=== PATIENT | male | born 1990 | race African-American/Black ===

== ENCOUNTER → 2017-01-14 | Outpatient (CLI) | payer OTHER ==
--- NOTE | 2017-01-14 16:42 | RAD ---
Scrotal ultrasound, 01/14/2017: History: Scrotal swelling and pain The right testicle measures 3.7 x 2.6 x 2.0 cm while the left testicle measures 3.9 x 2.8 x 2.3 cm. There is no evidence of a testicular mass. Normal blood flow is present within both testicles. There is a 4 mm cyst in the right epididymis. The left epididymis is unremarkable. There is a small right hydrocele. There are moderate sized bilateral varicoceles. IMPRESSION: 1. Bilateral varicoceles. 2. Small right hydrocele. 3. Small right epididymal cyst.
== END | disposition home or self-care (01) ==
LOC: US 13:07
PROVIDERS: ATTEND Family Medicine
DX: I86.1 Scrotal varices (principal); N43.3 Hydrocele, unspecified; N50.3 Cyst of epididymis
CPT/HCPCS: 76870

== ENCOUNTER 2021-02-13 19:45 | Emergency (ER) | payer BC, OTHER ==
[~2021-02-13] VITALS: Ht 182.9 cm; Wt 70.0 kg
[2021-02-13] MEDS ORDERED: ONDANSETRON ODT 4 MG TAB.RAPDIS. PO ONE (23:45)
[2021-02-13] MEDS ORDERED: predniSONE 10 MG TABLET PO ONE (23:45)
[2021-02-13] MEDS ORDERED: ACETAMINOPHEN 500 MG TABLET PO ONE (23:45)
[2021-02-14] MEDS ORDERED: ONDA4TAB12 PO (00:39)
--- NOTE | 2021-02-14 00:39 | PHYS DOC ---
General Adult EDM: Chief Complaint: MULTIPLE COMPLAINTS HPI: HPI: Patient is a 30 year old male with no significant medical history presenting today complaining of nausea, vomiting, diarrhea, headaches, body aches, symptoms for 2 days. Denies any abdominal pain, denies any hematemesis or melena. Descr ibes the headache as throbbing and intermittent. Denies anything specifically exacerbating or relieving his headache. Patient reports the daughter has similar symptoms. (OMKAR RADER APRN) Review of Systems: Review of Systems: Constitutional: Reports body aches. Denies fever or chills. [] Eyes: Denies change in visual acuity. [] HENT: Denies nasal congestion or sore throat. [] Respiratory: Denies cough or shortness of breath. [] Cardiovascular: Denies chest pain or edema. [] GI: Reports nausea, vomiting, diarrhea. Denies abdominal pain, denies bloody stools, denies hematemesis : Denies dysuria. [] Musculoskeletal: Denies back pain or joint pain. [] Integument: Denies rash. [] Neurologic: Reports headache, denies focal weakness or sensory changes. [] Psychiatric: Denies depression or anxiety. [] (OMKAR RADER ARABIC PROFESSOR) Heart Score: C/O Chest Pain: N/A Risk Factors: Risk Factors: DM, Current or recent (<one month) smoker, HTN, HLP, family history of CAD, obesity. Risk Scores: Score 0 - 3: 2.5% MACE over next 6 weeks - Discharge Home Score 4 - 6: 20.3% MACE over next 6 weeks - Admit for Clinical Observation Score 7 - 10: 72.7% MACE over next 6 weeks - Early Invasive Strategies (OMKAR RADER ARABIC PROFESSOR) Current Medications: Current Medications Medications (Trade) Dose Ordered Sig/Zuri Start Time Stop Time Status Last Admin Dose Admin Acetaminophen (Tylenol) 1,000 mg 1X ONCE 02/13/21 23:45 02/13/21 23:46 UNV Ondansetron HCl (Zofran Odt) 4 mg 1X ONCE 02/13/21 23:45 02/13/21 23:46 UNV Prednisone (Prednisone) 50 mg 1X ONCE 02/13/21 23:45 02/13/21 23:46 UNV (OMKAR RADER APRN) Physical Exam: PE: Constitutional: Well developed, well nourished, no acute distress, non-toxic appearance. [] HENT: Normocephalic, atraumatic, bilateral external ears normal, oropharynx moist, no oral exudates, nose normal. [] Eyes: PERRLA, EOMI, conjunctiva normal, no discharge. [] Neck: Normal range of motion, no tenderness, supple, no stridor. [] Cardiovascular:Heart rate regular rhythm, no murmur [] Lungs & Thorax: Bilateral breath sounds clear to auscultation [] Abdomen: Bowel sounds normal, soft, no tenderness, no masses, no pulsatile masses. [] Skin: Warm, dry, no erythema, no rash. [] Back: No tenderness, no CVA tenderness. [] Extremities: No tenderness, no cyanosis, no clubbing, ROM intact, no edema. [] Neurologic: Alert and oriented X 3, normal motor function, normal sensory function, no focal deficits noted. [] Psychologic: Affect normal, judgement normal, mood normal. [] (OMKAR RADER APRN) Current Patient Data: Vital Signs: Vital Signs Date Time Temp Pulse Resp B/P (MAP) Pulse Ox O2 Delivery O2 Flow Rate FiO2 02/14/21 00:52 67 16 140/89 (106) 96 Room Air 02/14/21 00:36 66 16 136/83 (100) 97 Room Air 02/14/21 00:32 98.2 77 16 126/78 98 Room Air 98.2 (JIMMIE HARKINS DO) EKG: EKG: [] (OMKAR RADER APRN) Radiology/Procedures: Radiology/Procedures: [] (OMKAR RADER APRN) Course & Med Decision Making: Course & Med Decision Making Pertinent Labs and Imaging studies reviewed. (See chart for details) This is a well-appearing 30-year-old male patient presenting to the ED today complaining of body aches, nausea, vomiting, diarrhea, headaches, symptoms for 2 days, patient states the daughter has similar symptoms. Patient was tested for COVID-19 and influenza ANP. Results will be called to him. In the meantime he was advised to quarantine himself, rest, push fluids, maintain good hand hygiene. (OMKAR RADER APRN) Course & Med Decision Making I have participated in the care of this patient and I have reviewed and agree with all pertinent clinical information above including history, exam, and recommendations. Jimmie Harkins DO (JIMMIE HARKINS DO) Deniz Disclaimer: Deniz Disclaimer: This electronic medical record was generated, in whole or in part, using a voice recognition dictation system. (OMKAR RADER APRN) Departure Departure Impression: Primary Impression: Person under investigation for COVID-19 Additional Impressions: Nausea & vomiting Qualified Codes: R11.2 - Nausea with vomiting, unspecified Diarrhea Qualified Codes: R19.7 - Diarrhea, unspecified Headache Qualified Codes: R51.9 - Headache, unspecified Disposition: 01 HOME / SELF CARE / HOMELESS Condition: STABLE Referrals: NO PCP (PCP) follow up with your doctor in 1 week Patient Instructions: Diarrhea, Headache, FAQs, Nausea and Vomiting, [id number] Additional Instructions: You were evaluated for symptoms suspicious of a viral illness like COVID-19 or influenza. We ask you to push fluids, maintain good antigen. You can take Tylenol or Motrin for pain or fever. We sent a prescription for Zofran to [facility]. We ask you to quarantine yourself until Covid results are back. Push fluids, maintain good hand hygiene. Scripts Ondansetron (ONDANSETRON ODT) 4 Mg Tab.rapdis 1 TAB PO PRN Q6-8HRS, #16 TAB Prov: OMKAR RADER APRN 02/14/21 OMKAR RADER APRN Feb 14, 2021 00:39 JIMMIE HARKINS DO Feb 14, 2021 01:24
[2021-02-14 00:52] VITALS: BP 140/89
[2021-02-14 01:28] LABS: INFLUENZA A PATIENT NEGATIVE (NEGATIVE); INFLUENZA B PATIENT NEGATIVE (NEGATIVE)
--- NOTE | 2021-02-14 18:17 | NUR ---
IP: Informed pt of negative covid test. pt verbalized understanding.
== END 2021-02-14 01:15 | disposition home or self-care (01) ==
LOC: ER 19:45
DX: R11.2 Nausea with vomiting, unspecified (principal); Z20.822 Contact with and (suspected) exposure to COVID-19; R19.7 Diarrhea, unspecified; R51.9 Headache, unspecified
CPT/HCPCS: 87426; 87804; 99284; J7512; U0003; U0005

== ENCOUNTER 2021-10-23 18:15 | Emergency (ER) | payer BC ==
[~2021-10-23] VITALS: Ht 177.8 cm; Wt 70.0 kg
[~2021-10-23 18:15] MED LIST: ONDA4TAB12 PO
[2021-10-23] MEDS ORDERED: LIDO:MAALOX 1:1 20 ML SINGLE DOSE. SWSW ONE (18:45)
[2021-10-23] MEDS ORDERED: ACETAMINOPHEN 500 MG TABLET PO ONE (18:45)
[2021-10-23] MEDS ORDERED: FAMOTIDINE 20 MG/2 ML VIAL IVP ONE (18:45)
[2021-10-23] MEDS ORDERED: IV NORMAL SALINE 1000ML BAG 1,000 ML IV ONE (18:45)
[2021-10-23 19:12] LABS: BASO % 1 % (0-3); EOS % 0 % (0-3); HEMOGLOBIN 13.2 g/dL (13.0-17.5); LYMPH # 2.6 x10^3/uL (1.0-4.8); LYMPH % 25 % (24-48); MEAN CORPUSCULAR HEMOGLOBIN 32 pg (25-35); MEAN CORPUSCULAR HGB CONC 34 g/dL (31-37); MEAN CORPUSCULAR VOLUME 94 fL (79-100); MONO # 0.9 x10^3/uL (0.0-1.1); MONO % 8 % (0-9); NEUT # 6.9 x10^3/uL (1.8-7.7); NEUT % 67 % (31-73); PLATELET COUNT 214 x10^3/uL (140-400); RED BLOOD COUNT 4.17 x10^6/uL (4.30-5.70); RED CELL DISTRIBUTION WIDTH 12.9 % (11.5-14.5); WHITE BLOOD COUNT 10.4 x10^3/uL (4.0-11.0)
--- NOTE | 2021-10-23 19:13 | PHYS DOC ---
Past Medical History Past Surgical History: No Surgical History Smoking Status: Never Smoker Alcohol Use: None Adult General Chief Complaint Chief Complaint: GI PROBLEM HPI HPI The patient is a 31-year-old otherwise healthy male who presents for evaluation of epigastric discomfort with radiation up into his midsternal chest, with onset about 24 hours prior to arrival while he was getting ready for bed last evening. Discomfort is pleuritic, significantly worse with deep breathing, and is described as stabbing. Severity 7 out of 10 at present. Associated shortness of breath because the patient reports it hurts to take a deep breath. Discomfort is directly reproducible to palpation of the epigastrium. Patient denies other focal or specific symptoms and specifically denies fevers, nausea or vomiting, upper respiratory congestion/rhinorrhea, cough, sore throat, abdominal pain of any kind, flank pain, midline back pain, dysuria, hematuria, polyuria or oliguria, changes in bowel habits, pain or swelling to arms or legs. Patient is alert, pleasantly and appropriately interactive and ambulatory in the emergency department with a narrow, steady gait. Vital signs are appropriate here. He is in no acute distress. Review of records demonstrates the patient presented for an identical set of symptoms about 2 months ago. Work-up was negative at that time and he was directed to follow-up with primary which he has unfortunately not been able to do. Review of Systems Review of Systems A 12 point review of systems was completed and was negative except where noted in HPI above. Current Medications Current Medications Current Medications Medications (Trade) Dose Ordered Sig/Zuri Start Time Stop Time Status Last Admin Dose Admin Acetaminophen (Tylenol) 1,000 mg 1X ONCE 10/23/21 18:45 10/23/21 18:52 DC 10/23/21 19:17 1,000 MG Famotidine (Pepcid Vial) 20 mg 1X ONCE 10/23/21 18:45 10/23/21 18:52 DC 10/23/21 19:19 20 MG Multi-Ingredient Mouthwash/Gargle (Gi Cocktail) 20 ml 1X ONCE 10/23/21 18:45 10/23/21 18:52 DC 10/23/21 19:18 20 ML Sodium Chloride 1,000 ml @ 1,000 mls/hr 1X ONCE 10/23/21 18:45 10/23/21 19:44 DC 10/23/21 19:20 1,000 MLS/HR Allergies Allergies Allergies Coded Allergies Type Severity Reaction Last Updated Verified No Known Drug Allergies 02/14/21 No Physical Exam Physical Exam 31-year-old male appearing nontoxic and in no acute distress. Head is normocephalic and atraumatic. Neck is supple and nontender. No JVD. No carotid bruits. Oropharynx is moist. Lungs are clear to auscultation at all stations. There is a normal S1 and S2 without rubs or gallops and capillary refill is appropriate, less than 2 seconds globally. Abdomen is soft and nondistended without pulsatile mass. Mild focal epigastric tenderness to palpation without rebound or guarding. No right-sided tenderness to palpation. Skin is warm and dry without cyanosis, clubbing or edema. Psychiatrically, the patient demonstrates appropriate mood and affect and is alert. Evaluation of the extremities reveals BUEs and BLEs neurovascular intact distally with strength out of 5, sensation intact light touch in all nerve distributions, radial, DP and PT pulses 2+ and equal bilaterally, capillary refill less than 2 seconds, hands and feet warm and well-perfused. No dependent peripheral edema distally. No calf tenderness swelling bilaterally. Homans test is negative bilaterally. Current Patient Data Vital Signs Vital Signs Date Time Temp Pulse Resp B/P (MAP) Pulse Ox O2 Delivery O2 Flow Rate FiO2 10/23/21 19:15 98.8 68 18 142/99 (113) 99 Room Air 98.8 Lab Values Laboratory Tests Test 10/23/21 19:00 White Blood Count 10.4 x10^3/uL (4.0-11.0) Red Blood Count 4.17 x10^6/uL (4.30-5.70) L Hemoglobin 13.2 g/dL (13.0-17.5) Hematocrit 39.0 % (39.0-53.0) Mean Corpuscular Volume 94 fL (79-100) Mean Corpuscular Hemoglobin 32 pg (25-35) Mean Corpuscular Hemoglobin Concent 34 g/dL (31-37) Red Cell Distribution Width 12.9 % (11.5-14.5) Platelet Count 214 x10^3/uL (140-400) Neutrophils (%) (Auto) 67 % (31-73) Lymphocytes (%) (Auto) 25 % (24-48) Monocytes (%) (Auto) 8 % (0-9) Eosinophils (%) (Auto) 0 % (0-3) Basophils (%) (Auto) 1 % (0-3) Neutrophils # (Auto) 6.9 x10^3/uL (1.8-7.7) Lymphocytes # (Auto) 2.6 x10^3/uL (1.0-4.8) Monocytes # (Auto) 0.9 x10^3/uL (0.0-1.1) Eosinophils # (Auto) 0.0 x10^3/uL (0.0-0.7) Basophils # (Auto) 0.0 x10^3/uL (0.0-0.2) D-Dimer (Vanessa) 0.34 ug/mlFEU (0.00-0.50) Sodium Level 139 mmol/L (136-145) Potassium Level 3.5 mmol/L (3.5-5.1) Chloride Level 101 mmol/L (98-107) Carbon Dioxide Level 28 mmol/L (21-32) Anion Gap 10 (6-14) Blood Urea Nitrogen 11 mg/dL (8-26) Creatinine 0.9 mg/dL (0.7-1.3) Estimated GFR (Cockcroft-Gault) 119.9 BUN/Creatinine Ratio 12 (6-20) Glucose Level 95 mg/dL (70-99) Calcium Level 9.4 mg/dL (8.5-10.1) Total Bilirubin 1.1 mg/dL (0.2-1.0) H Aspartate Amino Transferase (AST) 19 U/L (15-37) Alanine Aminotransferase (ALT) 18 U/L (16-63) Alkaline Phosphatase 78 U/L (46-116) Troponin I High Sensitivity 8 ng/L (4-75) Total Protein 8.3 g/dL (6.4-8.2) H Albumin 4.5 g/dL (3.4-5.0) Albumin/Globulin Ratio 1.2 (1.0-1.7) Lipase 37 U/L (73-393) L Laboratory Tests 10/23/21 19:00 Laboratory Tests 10/23/21 19:00 EKG EKG Sinus rhythm, rate 66, no acute ST elevation or depression, NE 150, QRS 94, QTc 381, EP interpretation. Nonischemic tracing, intervals appropriate. Radiology/Procedures Radiology/Procedures INDICATION: Reason: epigastric and RUQ pain; eval GB and biliary tree / Spl. Instructions: / History: COMPARISON: None. TECHNIQUE: Grayscale and color ultrasound images obtained through the abdomen. FINDINGS: Pancreas: Visualized portions unremarkable. Liver: Echotexture within normal limits. Gallbladder: Dilated up to 103 mm without definite stones seen Common Bile Duct: Not dilated. Right Kidney: No hydronephrosis. Aorta/IVC: Visualized portion unremarkable. IMPRESSION: * Dilated gallbladder without definite stones. Correlate with symptoms to ensure that there is not a pathologic cause such as hydrops. Electronically signed by: Prema Kay MD (10/23/2021 7:50 PM) [id number] DICTATED and SIGNED BY: PREMA KAY MD DATE: 10/23/211947 []XR CHEST 1V History: Reason: chest pain / Spl. Instructions: / History: Comparison: None. Findings: No consolidation or pleural effusion. Normal heart size. No pneumothorax. Impression: 1. No acute cardiopulmonary process. Electronically signed by: Fidel Mooney DO (10/23/2021 7:10 PM) [facility] DICTATED and SIGNED BY: FIDEL MOONEY DO DATE: 10/23/211909 Course & Med Decision Making Course & Med Decision Making 31-year-old male presenting for atypical pleuritic chest discomfort with assoc iated epigastric pain. Recurrent episode. HEART score low risk at 0. Wells low risk for PE. Will check studies as noted and will then reevaluate. Will give GI cocktail, Pepcid, Tylenol and a full-strength aspirin. We will then reevaluate. 2014: Large work-up as above is unremarkable and reassuring. Dilated gallbladder noted on right upper quadrant imaging without stones, thickened wall, CBD abnormalities or other issues identified. This is discussed with Dr. Slaughter who states no follow-up with general surgery is necessary, particularly in view of the fact that discomfort is localized over the epigastrium, reproducible to palpation and got almost completely better with a GI cocktail. Most likely acid reflux, gastritis or an ulcer. Patient will be started on empiric PPI and will be referred to primary care and to gastroenterology for very close follow-up. He understands that if he feels worse instead of better or develops other new symptoms of concern that he should return the emergency department right away for reevaluation. All questions are answered. Dragon Disclaimer Dragon Disclaimer This electronic medical record was generated, in whole or in part, using a voice recognition dictation system. Departure Departure Impression: Primary Impression: Pleuritic chest pain Additional Impression: Abdominal pain, acute, epigastric Disposition: HOME / SELF CARE / HOMELESS Condition: IMPROVED Referrals: GABRIELE GARCIA MD, SCOTT S MD Patient Instructions: Abdominal Pain (Nonspecific) Additional Instructions: Follow-up very closely with your primary care doctor in the office in the next 2 to 4 days for reevaluation of your symptoms and to discussion of next best steps in care. We are referring you to Dr. Gabriele Garcia, a primary care doctor who you can see in follow-up in the office. Please call to make an appointment to be seen this week and let the adjutant general know that you were in the ER and need a close follow-up appointment to establish care. We are also referring you to the group dynamics instructor (the digestive system doctor). Please call to make an appointment to see Dr. Marrufo or one of his partners in the GI office regarding your belly and chest discomfort. Begin taking the acid lenin medication omeprazole daily as prescribed. You may take a Tylenol pill every 6 hours as needed for pain. Return to the emergency department right away for worsening symptoms of any kind or with any other new symptoms of concern. Scripts Acetaminophen (ACETAMINOPHEN) 500 Mg Tablet 1 TAB PO PRN Q6HRS PRN for pain or fever for 15 Days, #60 TAB 0 Refills Prov: CASI BRYANT MD 10/23/21 Omeprazole (OMEPRAZOLE) 20 Mg Capsule. 1 CAP PO DAILY, #30 CAP 2 Refills Prov: CASI BRYANT MD 10/23/21 Problem Qualifiers CASI BRYANT MD Oct 23, 2021 19:13
[2021-10-23 19:15] VITALS: BP 142/99
[2021-10-23 19:33] LABS: CALCIUM 9.4 mg/dL (8.5-10.1); CREATININE 0.9 mg/dL (0.7-1.3); GFR 119.9; POTASSIUM 3.5 mmol/L (3.5-5.1)
[2021-10-23 19:39] LABS: ALBUMIN 4.5 g/dL (3.4-5.0); ALBUMIN/GLOBULIN RATIO 1.2 (1.0-1.7); TOTAL BILIRUBIN 1.1 mg/dL (0.2-1.0); TOTAL PROTEIN 8.3 g/dL (6.4-8.2)
--- NOTE | 2021-10-23 19:41 | EKG ---
[facility] [address] [place] [address] Test Date: 2021-10-23 Test Time: 18:25:38 Pat Name: MILIND CONLEY Department: Room: Gender: M Welder Oxyhydrogen: : 1990 Requested By: CASI BRYANT Order Number: [id number] Reading MD: Filemon Goins Measurements Intervals [place] Rate: 66 P: 54 AK: 150 QRS: 11 QRSD: 94 T: 39 QT: 362 QTc: 381 Interpretive Statements SINUS RHYTHM NORMAL ECG RI6.01 No previous ECG available for comparison Electronically Signed On 10-25-2021 18:16:58 CDT by Filemon Goins
--- NOTE | 2021-10-23 19:52 | RAD ---
INDICATION: Reason: epigastric and RUQ pain; eval GB and biliary tree / Spl. Instructions: / History : COMPARISON: None. TECHNIQUE: Grayscale and color ultrasound images obtained through the abdomen. FINDINGS: Pancreas: Visualized portions unremarkable. Liver: Echotexture within normal limits. Gallbladder: Dilated up to 103 mm without definite stones seen Common Bile Duct: Not dilated. Right Kidney: No hydronephrosis. Aorta/IVC: Visualized portion unremarkable. IMPRESSION: * Dilated gallbladder without definite stones. Correlate with symptoms to ensure that there is not a pathologic cause such as hydrops. Electronically signed by: Jaden Ornelas MD (10/23/2021 7:50 PM) [id number]
[2021-10-23] MEDS ORDERED: OMEP20CA16 PO (20:28)
[2021-10-23] MEDS ORDERED: ACET500T68 PO (20:28)
== END 2021-10-23 20:40 | disposition home or self-care (01) ==
LOC: ER 18:15
DX: R07.81 Pleurodynia (principal); R10.13 Epigastric pain; R06.02 Shortness of breath
CPT/HCPCS: 36415; 71045; 76705; 80053; 83690; 84484; 85025; 85379; 93005; 96361; 96374; 99285; J3490; J7030